=== PATIENT | female | born 1945 | race Caucasian/White ===

== ENCOUNTER → 2016-12-28 | Outpatient (CLI) | payer MEDICARE, OTHER | END | disposition short-term general hospital (02) | LOC: CLORTH | DX: Z47.1 Aftercare following joint replacement surgery (principal); Z96.612 Presence of left artificial shoulder joint | CPT/HCPCS: 73502-RT ==

== ENCOUNTER → 2017-01-25 | Outpatient (CLI) | payer MEDICARE, OTHER | END | disposition short-term general hospital (02) | LOC: CLORTH 03:29 | DX: M25.551 Pain in right hip (principal); M54.9 Dorsalgia, unspecified ==

== ENCOUNTER → 2017-02-22 | Outpatient (CLI) | payer MEDICARE, OTHER | END | disposition short-term general hospital (02) | LOC: CLORTH 03:29 | DX: Z47.1 Aftercare following joint replacement surgery (principal); S76.011D Strain of muscle, fascia and tendon of right hip, subsequent encounter; Z96.611 Presence of right artificial shoulder joint | CPT/HCPCS: 73501-RT ==

== ENCOUNTER → 2017-03-22 | Outpatient (CLI) | payer MEDICARE, OTHER | END | disposition short-term general hospital (02) | LOC: CLORTH 03:00 | DX: S76.011D Strain of muscle, fascia and tendon of right hip, subsequent encounter (principal) ==